=== PATIENT | female | born 1975 | race Caucasian/White ===

== ENCOUNTER 2018-10-28 16:26 | Emergency (ER) | payer SELFPAY ==
[2018-10-28] MEDS ORDERED: Clindamycin 150 MG CAP ONE (16:50)
== END 2018-10-28 16:50 | disposition home or self-care (01) ==
LOC: NAV ERS 16:26
DX: K04.7 Periapical abscess without sinus (principal); L03.211 Cellulitis of face
CPT/HCPCS: 99283